=== PATIENT | female | born 1970 | race Caucasian/White ===

== ENCOUNTER 2017-09-22 18:49 | Emergency (ER) | payer OTHER ==
[2017-09-22] MEDS ORDERED: EPINEPHrine 1 MG/ML INJ IM ONE (19:12)
[2017-09-22] MEDS ORDERED: methylPREDNISolone SOD SUCC 125 MG/2 ML VIAL IVP ONE (19:12)
[2017-09-22] MEDS ORDERED: RANITIDINE 50 MG/2 ML VIAL IVP ONE (19:12)
[2017-09-22] MEDS ORDERED: NS 1,000 ML IV ONE (19:12)
--- NOTE | 2017-09-22 19:15 | EDPHY ---
H & P Stated Complaint: 2 x bee stings to head, itching and redness to neck. - Personal History Current Tetanus Diphtheria and Acellular Pertussis (TDAP): Yes - Medical/Surgical History Hx Asthma: No Hx Chronic Respiratory Disease: No Hx Diabetes: No Hx Cardiac Disease: No Hx Renal Disease: No Hx Cirrhosis: No Hx Alcoholism: No Hx HIV/AIDS: No Hx Splenectomy or Spleen Trauma: No Other PMH: Denies - Social History Smoking Status: Never smoked Time Seen by Provider: 09/22/17 19:06 HPI/ROS: CHIEF COMPLAINT: Bee sting to scalp HISTORY OF PRESENT ILLNESS: 47-year-old female was stung by 1 of her honey bees to the scalp when it became entangled in her hair. She was able to removed the stinger with a credit card. This occurred approximately 45 min ago. She consumed Benadryl 25 mg x2 and arrives via private vehicle. She is complaining of discomfort with swallowing, tinnitus, burning, itching to her face and neck. No dyspnea. No abdominal pain. No vomiting. REVIEW OF SYSTEMS: A ten point review of systems was performed and is negative with the exception of the items mentioned in the HPI PAST MEDICAL & SURGICAL HISTORY: prior history of localized reaction to bee stings no history of anaphylaxis, hospitalization or epinephrine administration. SOCIAL HISTORY: Nonsmoker PHYSICAL EXAM (Prior to examination, patient consented to physical exam, hands were washed and my usual and customary physical exam procedures followed) 1) GENERAL: Well-developed, well-nourished, alert and oriented. Appears uncomfortable and anxious 2) HEAD: Normocephalic, atraumatic 3) HEENT: Pupils equal, round, reactive to light bilaterally. Sclera anicteric. Periorbital erythema and edema noted Nasopharynx, oropharynx, clear , no lesions. Ears bilaterally with normal tympanic membranes. Facial erythema noted 4) NECK: Full range of motion, no meningeal signs. Neck erythema noted 5) LUNGS: Clear auscultation bilaterally, no wheezes, no rhonchi, no retractions. 6) HEART: Regular rate and rhythm, no murmur, no heave, no gallop. 7) ABDOMEN: No guarding, no rebound, no focal tenderness, negative McBurney's, negative Pettit's, negative Rovsing's, negative peritoneal sign, 8) MUSCULOSKELETAL: Moving all extremities, no focal areas of tenderness, no obvious trauma. No peripheral edema or discoloration. 9) BACK: No CVA tenderness, no midline vertebral tenderness, no fluctuance, no step-off, no obvious trauma, no visual or palpable abnormality. 10) SKIN: No rash, no petechiae. 11) Psychiatric: Patient is oriented X 3, there is no agitation. DIFFERENTIAL DIAGNOSIS: In no particular order include but limited to localized allergic reaction, anaphylaxis, urticaria (Rashard,Anais Katie) Constitutional: Initial Vital Signs Temperature (C) 36.6 C 09/22/17 18:49 Heart Rate 102 H 09/22/17 18:49 Respiratory Rate 18 09/22/17 18:49 Blood Pressure 119/106 H 09/22/17 18:49 O2 Sat (%) 99 09/22/17 18:49 O2 Delivery Mode Room Air Allergies/Adverse Reactions: MSG Allergy (Intermediate, Uncoded 08/28/12 12:02) quinoa Allergy (Intermediate, Uncoded 08/28/12 12:02) nkda Allergy (Uncoded 08/28/12 12:02) Home Medications: Medication Instructions Recorded Herbals/Supplements -Info Only 08/28/12 Herbals/Supplements -Info Only 1 each PO AD 08/28/12 Vit27&Calcium/Iron/FA 1 each PO DAILY 08/28/12 [ Rx 1 Tablet (RX)] Ubidecarenone [Co Q-10] 100 mg PO BID 08/28/12 EPINEPHrine [Epipen 0.3 MG] 0.3 mg IM ONCE #2 syr 09/22/17 Medical Decision Making ED Course/Re-evaluation: 7:13 p.m.: Patient appears uncomfortable, she is complaining of bilateral tinnitus, complaining of discomfort with swallowing, itching and erythema noted to the face and neck. She already has consumed Benadryl. Will administer Pepcid, Solu-Medrol, epinephrine, IV fluids, observe in the ER for period of time. 8:15 p.m.: Re-evaluation, feeling improvement. Will continue to observe patient in the ER. 9:13 p.m.: Re-evaluation, asymptomatic. Plan will be discharge home. She has been given usual customary allergic reaction precautions instructions. We discussed possibility of biphasic reaction. She lives close by in [place], has phone access, I believe her to have decision-making capacity, lives with family members. She feels comfortable being discharged home. I saw this patient independently based on established practice protocols. Care of patient under supervision of secondary supervising physician Dr Kowalski . (Anais Wetzel) Today on September 25 pharmacist called and asked to substitute name brand EpiPen for generic. I okayed this change. (Luciano Chacon) Other Provider: The patient was evaluated and managed by the [employer] [employer]. My co- signature indicates that I have reviewed this chart and I agree with the findings and plan of care as documented. I am the secondary supervising physician. (Bren Kowalski) - Data Points Medications Given: Discontinued Medications Epinephrine HCl (Epinephrine) 0.3 mg IM EDNOW ONE Stop: 09/22/17 19:13 Last Admin: 09/22/17 19:20 Dose: 0.3 mg Sodium Chloride (Ns) 1,000 mls @ 0 mls/hr IV ONCE ONE; Wide Open PRN Reason: Protocol Stop: 09/22/17 19:13 Last Admin: 09/22/17 19:20 Dose: 1,000 mls Methylprednisolone Sodium Succinate (Solu-Medrol) 125 mg IVP EDNOW ONE Stop: 09/22/17 19:13 Last Admin: 09/22/17 19:23 Dose: 125 mg Ondansetron HCl (Zofran) 4 mg IVP EDNOW ONE Stop: 09/22/17 19:41 Last Admin: 09/22/17 20:50 Dose: Not Given Ondansetron HCl (Zofran Odt 4 Mg Prepack#2) 1 btl TAKEHOME EDNOW ONE Stop: 09/22/17 21:38 Last Admin: 09/22/17 21:38 Dose: 1 btl Ranitidine HCl (Zantac) 50 mg IVP EDNOW ONE Stop: 09/22/17 19:13 Last Admin: 09/22/17 19:22 Dose: 50 mg Departure - Departure Disposition: Home, Routine, Self-Care Clinical Impression: Allergic reaction to bee sting Condition: Good Instructions: Ondansetron (By mouth), Allergies (ED) Additional Instructions: If you are stung by a bee and develop allergy symptoms use your EpiPen immediately and call 911 Referrals: Yanique Millard MD [Primary Care Provider] - 1-2 days without fail Prescriptions: EPINEPHrine [Epipen 0.3 MG] 0.3 mg IM ONCE #2 syr
[2017-09-22] MEDS ORDERED: ONDANSETRON 4 MG/2 ML VIAL IVP ONE (19:40)
[2017-09-22] MEDS ORDERED: ONDANSETRON 4 MG/2 ML VIAL ONE (19:40)
[2017-09-22] MEDS ORDERED: ONDANSETRON 4MG PREPACK#2 BTL TAKEHOME ONE (21:37)
[2017-09-22 21:44] VITALS: BP 118/79
== END 2017-09-22 21:44 | disposition home or self-care (01) ==
DX: T63.441A Toxic effect of venom of bees, accidental (unintentional), initial encounter (principal); E86.9 Volume depletion, unspecified
CPT/HCPCS: 96374; J0171; J2405; J2780; J2930